=== PATIENT | female | born 1975 | race Caucasian/White ===

== ENCOUNTER 2022-08-18 13:00 | Outpatient (CLI) | payer OTHER, SELFPAY ==
--- NOTE | 2022-08-18 13:00 | CRLHL7_ITS ---
For Patients: As a result of the Century Cures Act, medical imaging exams and procedure reports are released immediately into your electronic medical record. You may view this report before your referring provider. If you have questions, please contact your health care provider. INDICATION: Witnessed seizure. TECHNIQUE: Noncontrast CT images acquired through the brain. COMPARISON: None. FINDINGS: The ventricles and sulci are within normal limits for patient age. No mass effect or midline shift. The amado-white differentiation is maintained. No acute intracranial hemorrhage or pathologic extra-axial fluid collection. The globes are symmetric. The calvarium is intact. Severe right maxillary sinus mucosal thickening. The mastoid air cells are clear. IMPRESSION: 1. No acute intracranial hemorrhage or mass effect. 2. Severe right maxillary sinus mucosal thickening. Please note that all CT scans at this facility use dose modulation, iterative reconstruction, and/or weight-based dosing when appropriate to reduce radiation dose to as low as reasonably achievable. Dictated by Davidson Gore MD @ 08/18/2022 2:27:35 PM (Electronically Signed)
== END 2022-08-18 13:01 | disposition home or self-care (01) ==
LOC: CT 13:01
PROVIDERS: PCP Nurse Practitioner Family; Visit Provider Nurse Practitioner Family
DX: R56.9 Unspecified convulsions (principal); J32.0 Chronic maxillary sinusitis
CPT/HCPCS: 70450